=== PATIENT | male | born 1985 | race Caucasian/White ===

== ENCOUNTER 2024-08-19 13:14 | Emergency (ER) | payer BC ==
[~2024-08-19] VITALS: Ht 175.3 cm; Wt 82.6 kg
[2024-08-19 13:47] VITALS: BP 150/101; TEMP 97.6
[2024-08-19 15:00] VITALS: O2SAT 97
== END 2024-08-19 15:01 | disposition home or self-care (01) ==
LOC: ER 13:24
DX: F41.9 Anxiety disorder, unspecified (principal); E78.00 Pure hypercholesterolemia, unspecified; Z88.2 Allergy status to sulfonamides